=== PATIENT | female | born 1955 | race Caucasian/White ===

== ENCOUNTER 2017-05-09 10:46 | Day surgery (SDC) | payer BC ==
[2017-05-09] MEDS: NS 1,000 ML IV (11:18)
[2017-05-09] MEDS ORDERED: PROPOFOL 200 MG/20 ML VIAL As Ordered ×2 (11:28→11:39)
== END 2017-05-09 12:14 | disposition home or self-care (01) ==
LOC: M OPP 10:46
DX: Z12.11 Encounter for screening for malignant neoplasm of colon (principal); Z86.010 Personal history of colon polyps; I10 Essential (primary) hypertension; E78.5 Hyperlipidemia, unspecified; E03.9 Hypothyroidism, unspecified; R00.2 Palpitations; F41.9 Anxiety disorder, unspecified; Z88.0 Allergy status to penicillin; Z88.1 Allergy status to other antibiotic agents; Z79.899 Other long term (current) drug therapy; Z83.71 Family history of colonic polyps; Z80.42 Family history of malignant neoplasm of prostate
CPT/HCPCS: G0105